=== PATIENT | male | born 1975 | race Caucasian/White ===

== ENCOUNTER → 2023-08-27 13:07 | Outpatient (CLI) | payer OTHER, SELFPAY ==
--- NOTE | 2023-08-27 | DI.MRI.S_ITS ---
PROCEDURE: MR SHOULDER RT WO CON INDICATIONS: Separation of muscle (nontraumatic), right shoulde TECHNIQUE: Noncontrast oblique coronal T2 fast spin echo with fat saturation, oblique sagittal T1 spin echo and T2 fast spin echo with fat saturation, axial T1 spin echo and T2 fast spin echo with fat saturation through the shoulder. COMPARISON: None. FINDINGS: Image quality: Excellent. Rotator cuff: There is [id number] grade partial-thickness tear of the distal supraspinatus tendon. There is mild infraspinatus and subscapularis tendons with low-grade partial tear. Sagittal images demonstrate rotator cuff muscle atrophy. Bones and bursae: No fractures. There is 9 mm superior subluxation of the distal clavicle at the right AC joint. There is edema in the distal clavicle and acromion, suggesting bone contusions. There is fluid within the right AC joint. Mild acromioclavicular and glenohumeral joint degeneration. The acromion demonstrates conventional anatomy, without an os acromiale. There small glenohumeral joint consistent with bursitis. Capsule and soft tissues: There is degenerative fraying of the superior and posterior glenoid labrum. The long head of the biceps tendon demonstrates normal location and morphology. The rotator interval appears normal, without fibrosis. The coracohumeral ligament is normal in thickness. IMPRESSION: 1. [id number]-grade partial-thickness tear of the supraspinatus tendon. 2. Low-grade partial-thickness tear of the infraspinatus and subscapularis tendons with mild tendinosis. 3. There is 9 mm superior subluxation of the distal clavicle at the AC joint. There is edema in the distal clavicle and acromion, consistent with bone contusions. There is fluid within the right AC joint. Recommend clinical correlation for AC separation. If clinically indicated, x-ray of the AC joints with weight-bearing may be helpful. 4. Mild acromioclavicular and glenohumeral joint arthrosis. 5. Degenerative superior and posterior labral fraying. Dictated by: Hanh Tran M.D. on 08/27/2023 at 14:11 Approved by: Hanh Tran M.D. on 08/27/2023 at 14:38
== END ==
PROVIDERS: Referring Provider Family Medicine; Visit Provider Family Medicine
DX: M62.011 Separation of muscle (nontraumatic), right shoulder (principal); M75.111 Incomplete rotator cuff tear or rupture of right shoulder, not specified as traumatic; M19.011 Primary osteoarthritis, right shoulder
CPT/HCPCS: 73221

== ENCOUNTER → 2023-10-26 12:37 | Outpatient (CLI) | payer OTHER, SELFPAY ==
--- NOTE | 2023-10-26 | DI.RAD.S_ITS ---
PROCEDURE: XR RIBS LT MIN 3V W CXR1V INDICATIONS: TRAUMA L CHEST WALL TECHNIQUE: 2 views of the left ribs were acquired, along with a single view chest. COMPARISON: None. FINDINGS: There is a nondisplaced anterior left 10th rib fracture. There is no evidence for pneumothorax or hemothorax. Underlying lung parenchyma is clear. Heart mediastinal contours appear within normal limits. Pulmonary vascularity is normal. IMPRESSION: 1. Relatively nondisplaced anterior left 10th rib fracture. 2. No evidence for hemothorax or pneumothorax. Dictated by: Milton Carlisle M.D. on 10/26/2023 at 17:10 Approved by: Milton Carlisle M.D. on 10/26/2023 at 17:19
== END ==
PROVIDERS: Referring Provider Family Medicine; Visit Provider Family Medicine
DX: S22.32XA Fracture of one rib, left side, initial encounter for closed fracture (principal)
CPT/HCPCS: 71101